=== PATIENT | male | born 1970 | race Caucasian/White ===

== ENCOUNTER 2022-10-03 07:42 | Inpatient (IN) ==
--- NOTE | 2022-09-27 12:10 | Anesthesiology Consultation ---
Date of Service September 27, 2022 Assessment & Plan (1) Encounter for pre-operative examination: Chart Review Chart Review: Acceptable Risk for Surgery and Patient NOT seen in Pre Admission Testing -Pt initially scheduled 09/20/22- tested for Covid preop- tested Covid positive- rescheduled for 10/03/22. Pt was asymptomatic at time of positive test. Rescheduled surgery date is 13 days for Covid positive test. Per protocol- pt will not need additional preop Covid testing - Check BSG AM DOS -COVID screening: Per PAT nursing assessment on 09/27/22. Pt tested Covid positive 09/20/22 as preop test- asymptomatic. No known COVID-19 positive contacts or current COVID-19 related symptoms. Travel screen negative. Patient is NOT vaccinated for Covid. . History Surgery Operation Date: 10/03/22 07:45 Proposed Procedures p L4-S1 Decompression and Fusion, Spinal Cord Monitoring - Jacky Kinney DO Height/Weight Height: 5 ft 11 in Weight: 90.718 kg Allergies Allergy/AdvReac Type Severity Reaction Status Date / Time No Known Allergies Allergy Verified 09/27/22 11:33 Medications Home Medications Medication Instructions Recorded Confirmed Last Taken oxycodone-acetaminophen 5 mg-325 1 - 2 tab PO Q4H PRN pain #30 tabs 07/21/22 09/27/22 Unknown mg tablet (Percocet) aspirin 81 mg tablet 81 mg PO QAM 08/26/22 09/27/22 09/17/22 atorvastatin 40 mg tablet 40 mg PO QAM 08/26/22 09/27/22 09/18/22 empagliflozin 25 mg tablet 25 mg PO QAM 08/26/22 09/27/22 09/15/22 (Jardiance) lisinopril 10 mg tablet 10 mg PO QAM 08/26/22 09/27/22 09/17/22 metformin 500 mg tablet,extended 500 mg PO QAM 08/26/22 09/27/22 09/19/22 08:00 release 24 hr Past Medical History Medical History (Updated 09/27/22 @ 12:10 by Ltety Noel PA-C) Dyslipidemia History of COVID-19 Sep 20, 2022 > asymptomatic- does as preop > tested [place] Hypertension Obesity Type 2 diabetes mellitus NIDDM Past Family History Family History Other No family history of adverse response to anesthesia Past Surgical History Surgical History History of hernia repair Hx of colonoscopy Social History Smoking Status: Never smoker tobacco type: smokeless tobacco Do You Dip or Chew Tobacco: Yes (advised npo status) Hx Alcohol Use: Yes Alcohol type: beer alcohol intake frequency: a few times a month Hx Substance Use: No substance use type: does not use Lab Results Anesthesia Preop Results Results Anesthesia Widget: WBC 4.74 K/ul (4.8-10.8) L 08/29/22 Hgb 14.5 g/dl (14.0-18.0) 08/29/22 Hct 40.6 % (40.1-51.0) 08/29/22 Plt 211 K/uL (130-400) 08/29/22 Na 132 mmol/L (136-145) L 08/29/22 K 4.1 mmol/L (3.5-5.1) 08/29/22 Cl 93 mmol/L (98-107) L 08/29/22 CO2 30 mmol/L (21-32) 08/29/22 BUN 15 mg/dl (6-23) 08/29/22 Creat 0.78 mg/dl (0.6-1.4) 08/29/22 Glucose Level 228 mg/dl (70-99(Fasting)) H 08/29/22 POC Glucose 183 mg/dl (70-99) H 09/20/22 PT 10.1 Seconds (9.0-12.0) 08/29/22 PTT 25.3 Seconds (21.0-31.0) 08/29/22 INR 0.9 (0.9-1.1) 08/29/22 HA1c 8.3 % (4.5-5.6) H 08/29/22 Urine Color Yellow 08/29/22 Urine Appearance Clear (Clear) 08/29/22 Urine pH 6.0 (4.5-7.5) 08/29/22 Urine Specific [place] 1.033 (1.000-1.030) H 08/29/22 Urine Protein Negative (Negative) 08/29/22 Urine Glucose (UA) 3+ (Negative) H 08/29/22 Urine Ketones Negative (Negative) 08/29/22 Urine Blood Negative (Negative) 08/29/22 Urine Nitrite Negative (Negative) 08/29/22 Urine Bilirubin Negative (Negative) 08/29/22 Urine Urobilinogen Negative (Negative) 08/29/22 Urine Leukocyte Esterase Negative (Negative) 08/29/22 SARS-CoV-2, RNA, NAAT POSITIVE (NEGATIVE) A* 09/20/22 Blood Type A Positive 09/20/22 Antibody Screen NEGATIVE 09/20/22 Testing Laboratory Results Surgeon's office made aware of elevated glucose/A1C* Electrocardiogram Date: 08/29/22 SR with PACs at 82bpm. Chest X-Ray Date: 08/29/22 Findings: + NAD Echocardiogram Date: 09/06/22 EF: 60-65% LV Function: normal RWMA: + none Other Findings: + LVH (mild/concentric) Valvular Disease: + no significant valvular disease Moderate right atrial dilation
[~2022-10-03 07:42] MED LIST: ACETAMINOPHEN 500 MG TAB PO SCH; CeleBREX 200 MG CAP PO SCH; GABAPENTIN 900 MG DOSE PO SCH; LR 15ML/HR IV SCH; ceFAZolin 2000MG 2,000 MG/15 ML SYR IV SCH
[2022-10-03] MEDS ORDERED: ROCURONIUM BROMIDE 10 MG/ML 5 ML VIAL IV ONE (08:51)
[2022-10-03] MEDS ORDERED: MIDAZOLAM HCL 1 MG/ML 2ML VIAL ONE ×2 (08:51→10:31)
[2022-10-03] MEDS ORDERED: LIDOCAINE 2% MPF LOCAL 5 ML VIAL INFIL ONE (08:51)
[2022-10-03] MEDS ORDERED: ONDANSETRON INJ 2 MG/ML 2 ML VIAL ONE (08:51)
[2022-10-03] MEDS ORDERED: fentaNYL citrate 100 MCG/2 ML VIAL ONE ×2 (08:51→11:18)
[2022-10-03] MEDS ORDERED: DEXAMETHASONE SOD INJ 4 MG/ML VIAL ONE (08:51)
[2022-10-03] MEDS ORDERED: PROPOFOL IV EMULSION 10 MG/ML 20 ML VIAL IV ONE (08:51)
[2022-10-03] MEDS ORDERED: ONDANSETRON INJ 2 MG/ML 2 ML VIAL IV PRN ×2 (09:14→13:52)
[2022-10-03] MEDS ORDERED: fentaNYL citrate 100 MCG/2 ML VIAL IV PRN (09:14)
[2022-10-03] MEDS ORDERED: ATROPINE SULFATE 0.1 MG/ML 10ML SYR IV PRN (09:14)
[2022-10-03] MEDS ORDERED: ePHEDrine sulfate 50 MG/ML AMP IV PRN (09:14)
[2022-10-03] MEDS ORDERED: HYDROmorphone INJ 2 MG/ML SYR/VIAL IV PRN (09:14)
--- NOTE | 2022-10-03 10:02 | History & Physical Bridge Note ---
Date of Service October 03, 2022 History & Physical Bridge Note I have examined the patient, reviewed the History & Physical and in the interval since the performance of the History & Physical I have noted the following changes of clinical significance: no changes noted
--- NOTE | 2022-10-03 10:03 | History & Physical Report ---
Date of Service October 03, 2022 Assessment & Plan (1) Herniation of cervical intervertebral disc with radiculopathy: Plan: L4-S1 decompression and fusion History of Present Illness Chief Complaint: Back and leg pain Primary Care Provider: Melinda Lang MD This is a 52-year-old male presents with chronic persistent back and leg pain. After failing such course of nonoperative care is here for surgical invention. Allergies Allergy/AdvReac Type Severity Reaction Status Date / Time No Known Allergies Allergy Verified 10/03/22 08:19 Home Medications Medication Instructions Recorded Confirmed Type oxycodone-acetaminophen 5 mg-325 1 - 2 tab PO Q4H PRN pain #30 tabs 07/21/22 10/03/22 Rx mg tablet (Percocet) aspirin 81 mg tablet 81 mg PO QAM 08/26/22 10/03/22 History atorvastatin 40 mg tablet 40 mg PO QAM 08/26/22 10/03/22 History empagliflozin 25 mg tablet 25 mg PO QAM 08/26/22 10/03/22 History (Jardiance) lisinopril 10 mg tablet 10 mg PO QAM 08/26/22 10/03/22 History metformin 500 mg tablet,extended 500 mg PO QAM 08/26/22 10/03/22 History release 24 hr Past Med/Surg History Medical History (Updated 10/03/22 @ 10:03 by Jacky Kinney DO) Dyslipidemia History of COVID-19 Sep 20, 2022 > asymptomatic- does as preop > tested at [place] Hypertension Obesity Type 2 diabetes mellitus NIDDM Surgical History History of hernia repair Hx of colonoscopy Family History Other No family history of adverse response to anesthesia Social History Smoking Status: Never smoker Second Hand Exposure: No; Do You Dip or Chew Tobacco: Yes (advised npo status); Tobacco Cessation Education Requested by Patient: No Hx Alcohol Use: Yes Alcohol type: beer Hx Substance Use: No Preferred Language: [place]orese Communication Ability: Effective Tar Roofer Required: No Beliefs That Will Affect Care: None Current Living Situation: Spouse Other Information That Helps Us Care for You: No Feels Safe at Home: Yes Safety Concerns: Feels Safe At This Time Assistive Devices: None Physical Exam Physical Exam: Patient is alert and oriented Heart regular rhythm Lungs clear Results & Data Results & Data ([facility]) Vital Signs (Past 12 Hours) Vital Signs Temp Pulse Resp BP Pulse Ox O2 Del Method 10/03/22 08:27 36.8 C 75 20 121/93 98 Room Air
[2022-10-03] MEDS ORDERED: BUPIVACAINE/EPINEPHRINE 0.25% 1:200,000 30 ML VIAL ONE (10:07)
[2022-10-03] MEDS ORDERED: ceFAZolin 330 MG/ML 1 GM VIAL ONE (10:07)
[2022-10-03] MEDS ORDERED: FLOSEAL HEMOSTATIC MATRIX 10ML TOP ONE (11:14)
[2022-10-03] MEDS ORDERED: GLYCOPYRROLATE 0.2 MG/ML VIAL ONE (11:44)
--- NOTE | 2022-10-03 12:25 | Fluoroscopy Report ---
INTRAOPERATIVE RADIOGRAPHS CLINICAL HISTORY: L4-S1 spinal fusion. Fluoroscopy time: 24 seconds. FINDINGS: 2 spot fluoroscopic views of the lumbar spine are presented. There has been discectomy at L 5-S1 with laminectomy and posterior fusion at this level. Interpedicular screws are in place. The ort hopedic hardware appears intact. IMPRESSION: Intraoperative images from lumbar spinal fusion surgery as above. Electronically signed by: Bret Blevins M.D. 10/03/2022 12:23 PM
--- NOTE | 2022-10-03 12:27 | Operative Report ---
Post Operative Report Pre & Post Diagnosis Operation Date: 10/03/22 09:35 Pre-Op Diagnosis: Lumbar spinal stenosis with herniated nucleus pulposus L5-S1. Post-Op Diagnosis: Same I identified the patient and participated in the time-out.: Yes Procedure Operation Date: 10/03/22 09:35 Actual Procedures #1 lumbar compression bilateral medial facetectomies and foraminotomies L4-L5 L5-S1. #2 posterior spinal fusion L5-S1. #3 placement posterior instrumentation L5-S1. #4 interbody fusion L5-S1. #5 placement of 14 x 26 mm at L5-S1. #6 placement locally harvested morselized autograft in the posterior gutters. #7 placement of I factor model V toss interbody space and posterior gutters. Surgeon Jacky Kinney, Health Club Attendant None Estimated Blood Loss 100 Findings Consistent with Post-Op Diagnosis Specimens None Indications This is a 52-year-old male who presents with a diagnosis of failed extensive course of nonoperative care is here for surgical invention. Description of Procedure Patient was met with identified informed consent obtained. Patient was then taken to the operative suite underwent a patient placed in a prone position the Sukumar table on top of the Preston frame. All bony prominences well-padded eyes inspected to ensure no external pressure placed upon them. This point lumbar spine was prepped and draped in a sterile fashion. Sharp dissection with the assistance of Bovie cautery was performed down to and exposing the lamina and transverse processes of L5 and sacral ala bilaterally. From caudal to cephalad fashion complete laminectomy of L5 partial anatomy L4 was performed including bilateral medial facetectomies foraminotomies as well as addressing a massive free fragment of disc material on the left. After complete decompression pedicle screws were then placed at L5 and S1 levels bilaterally with assistance of fluoroscopy and properly sized latricia placed. By way of a transforaminal approach on the left complete discectomy was performed endplates curetted to subcortical bleeding bone and a 14 x 26 mm spiral cage with I factor tapped in position. The rods were then locked into final position bilaterally. The transverse processes of L5 and sacral ala burred to subcortical bleeding bone. I factor combined with V toss and locally harvested morselized autograft was placed in the posterior gutters. 15 round RAVI inserted. The incision was then closed with 1 Vicryl the fascia 2-0 Vicryl subcutaneously and 4 Monocryl for final skin closure. Steri-Strips dressings placed. Patient waken taken to PACU in stable condition. I attest to the content of the Intraoperative Record and any orders documented therein. Any exceptions are noted below.
--- NOTE | 2022-10-03 13:42 | Anesthesiology Progress Note ---
Date of Service October 03, 2022 Anesthesia Post Procedure Vital Signs Vital Signs: Temp Pulse Pulse Resp BP Pulse Ox O2 Del Method 10/03/22 13:20 56 L 12 113/74 98 Room Air 10/03/22 13:10 76 17 105/70 100 Oxymask 10/03/22 13:00 48 L 13 99/68 L 100 Oxymask 10/03/22 12:50 60 13 106/66 98 Oxymask 10/03/22 12:43 36.2 C L 63 12 94/68 L 100 Oxymask 10/03/22 08:27 36.8 C 75 20 121/93 98 Room Air O2 Flow Rate 10/03/22 13:20 10/03/22 13:10 4 10/03/22 13:00 4 10/03/22 12:50 6 10/03/22 12:43 6 10/03/22 08:27 Pain Intensity Left Leg: Pain Intensity: 5 Lower Back: Pain Intensity: 5 Transfer of Care Handoff Completed per policy Notes Mental Status: alert / awake / arousable and participated in evaluation Patient Amnestic to Procedure: Yes Nausea / Vomiting: adequately controlled Pain: adequately controlled Airway Patency, RR, SpO2: stable & adequate BP & HR: stable & adequate Hydration State: stable & adequate Anesthetic Complications: no major complications apparent and Pt Satisfied with anesthetic care
[2022-10-03] MEDS ORDERED: hydrOXYzine HCl 25 MG TAB PO PRN (13:52)
[2022-10-03] MEDS ORDERED: bisacodyL 10 MG SUPP PR PRN (13:52)
[2022-10-03] MEDS ORDERED: PHARMACY GLYCEMIC MGMT CONSULT PRN (13:52)
[2022-10-03] MEDS ORDERED: DO NOT ADMINISTER PNEUMOCOCCAL VACCINE PRN (13:52)
[2022-10-03] MEDS ORDERED: HYDROmorphone INJ 0.5 MG/0.5 ML SYR IV PRN (13:52)
[2022-10-03] MEDS ORDERED: HYDROmorphone INJ 1 MG/ML SYRINGE IV PRN (13:52)
[2022-10-03] MEDS ORDERED: diphenhydrAMINE Capsule 25 MG CAP PO PRN (13:52)
[2022-10-03] MEDS ORDERED: ONDANSETRON 4 MG OD TAB PO PRN (13:52)
[2022-10-03] MEDS ORDERED: PROMETHAZINE HCL 12.5 MG in SODIUM CHLORIDE 0.9% 50 ML IV PRN (13:52)
[2022-10-03] MEDS ORDERED: METOCLOPRAMIDE HCL INJ 5 MG/ML 2 ML VIAL IV PRN (13:52)
[2022-10-03] MEDS ORDERED: LORazepam 0.5 MG TAB PO PRN (13:52)
[2022-10-03] MEDS ORDERED: FAMOTIDINE 20 MG TAB PO PRN (13:52)
[2022-10-03] MEDS ORDERED: DO NOT ADMINISTER FLU VACCINE PRN (13:52)
[2022-10-03] MEDS ORDERED: SOD PHOSPHATE/SOD BIPHOSPHATE ENEMA 132 ML BTL PR PRN (13:52)
[2022-10-03] MEDS ORDERED: MAGNESIUM HYDROXIDE SUSP 30 ML UDC PO PRN (13:52)
[2022-10-03] MEDS ORDERED: ACETAMINOPHEN 500 MG TAB PO PRN (13:52)
[2022-10-03] MEDS ORDERED: ALUMINUM/MAGNESIUM SUSP 30 ML UDC PO PRN (13:52)
[2022-10-03] MEDS ORDERED: NALOXONE HCL 0.4 MG/1 ML VIAL/CARP IV PRN (13:52)
[2022-10-03] MEDS ORDERED: LORazepam 0.5 MG in SYRINGE 0 ML IV PRN (13:52)
[2022-10-03] MEDS: SODIUM CHLORIDE 0.9% 1000ML 1,000 ML IV SCH ×2 (14:23→20:29)
--- NOTE | 2022-10-03 14:27 | Pharmacy Report ---
Pharmacy Glycemic Short Note 2 - Date of Service October 03, 2022 - Glycemic Short BSG Results (Last 24 hours): 10/03/22 10/03/22 08:10 12:45 POC Glucose 168 H 164 H OUTPATIENT ANTIDIABETIC REGIMEN: * metformin, Jardiance ASSESSMENT: * 52 y/o M POD#0 spinal decompression/fusion with history of T2DM * Steriods preop and continuing post op x3 doses * Lantus 30 units x1 now, reassess basal insulin in AM * Novolog ordered with a weight based stress of 3 PLAN FOR INPATIENT GLYCEMIC CONTROL: * Hold outpatient oral diabetes medications * Basal insulin * Lantus 30 units SQ x1, reassess in Am * Bolus insulin * NovoLog per scale ACHS or Q6hrs while NPO * Goal Range: Low 110 mg/dL - High 140 mg/dL * Correction Factor: 20 mg/dL/unit * Nutritional / Prandial insulin per carb ratio of 1 unit per 6 grams CHO consumed
[2022-10-03] MEDS ORDERED: LANTUS PER UNIT CHARGE SQ ONE ×2 (14:30→17:30)
[2022-10-03] MEDS ORDERED: GLUCOSE 40% GEL 15 GM TUBE PO PRN (14:45)
[2022-10-03] MEDS ORDERED: CARBOHYDRATES FOR HYPOGLYCEMIA PO PRN (14:45)
[2022-10-03] MEDS ORDERED: GLUCOSE 10 TAB/TUBE PO PRN (14:45)
[2022-10-03] MEDS ORDERED: GLUCAGON FOR INJ 1 MG VIAL IM PRN (14:45)
[2022-10-03] MEDS ORDERED: DEXTROSE 50% 50 ML SYRINGE IV PRN (14:45)
--- NOTE | 2022-10-03 15:39 | Hospitalist Consultation ---
Date of Consultation October 03, 2022 Assessment & Plan (1) S/P spinal surgery: (2) Type 2 diabetes mellitus: (3) Hypertension: (4) Dyslipidemia: Plan This is a 52yo M with a PMH of type 2 diabetes, hypertension, hyperlipidemia, chewing tobacco and other medical problems listed below who is POD#0 s/p umbar compression bilateral medial facetectomies and foraminotomies L4-L5 L5-S1 and posterior spinal fusion L5-S1. S/p spinal surgery Per ortho for pain control, wound care, anticoagulation and activities Monitor H&H (EBL 100ml, pre-op hgb 14.5) Continue incentive spirometry, PT/OT when appropriate DM II A1c 8.3 Hold home agents Decadron ordered by primary service; expect elevated BSG. Glycemic pharmacy consulted BSG AC HS HTN Normotensive. Continue lisinopril HLD Continue statin Tobacco use Chews tobacco daily; cessation education. Nicotine patch ordered PCP: Melinda Lang Dispo: Per ortho Patient seen in collaboration with Dr. Jules. Please see addendum. Thank you for this consultation. We will follow the patient with you during their hospital stay. You can reach a member of the [facility] Hospitalist Team 12/05 via [employer]. Supervising Physician Co-Signing Physician Notes I have seen and examined the patient and have discussed the case with the provider above. I agree with the assessment and plan as stated. The patient is experiencing expected incisional pain which is controlled. He is a tobacco user and is requesting a nicoderm patch. is at bedside. No other issues are reported. My physical exam reflects that above. Continue with plan for medication management as outlined above. DO Jorge A History of Present Illness Reason for Consultation: post op med mgmt Attending Physician: Jacky Kinney DO History of Present Illness This is a 52yo M with a PMH of type 2 diabetes, hypertension, hyperlipidemia, chewing tobacco and other medical problems listed below who is POD#0 s/p lumbar compression bilateral medial facetectomies and foraminotomies L4-L5 L5-S1 and posterior spinal fusion L5-S1. Patient is feeling fine postoperatively. Has some surgical site discomfort but lower extremity pain and paresthesias he had preoperatively are no longer present. Denies any lightheadedness, headache, chest pain, palpitations, shortness of breath, nausea or vomiting. No fever, chills or cough. Denies any dysuria, diarrhea or constipation. Follows with Dr. Lang of [facility] in [place], [place]. Allergies Allergy/AdvReac Type Severity Reaction Status Date / Time No Known Allergies Allergy Verified 10/03/22 08:19 Home Medications Medication Instructions Recorded Confirmed Type oxycodone-acetaminophen 5 mg-325 1 - 2 tab PO Q4H PRN pain #30 tabs 07/21/22 10/03/22 Rx mg tablet (Percocet) aspirin 81 mg tablet 81 mg PO QAM 08/26/22 10/03/22 History atorvastatin 40 mg tablet 40 mg PO QAM 08/26/22 10/03/22 History empagliflozin 25 mg tablet 25 mg PO QAM 08/26/22 10/03/22 History (Jardiance) lisinopril 10 mg tablet 10 mg PO QAM 08/26/22 10/03/22 History metformin 500 mg tablet,extended 500 mg PO QAM 08/26/22 10/03/22 History release 24 hr Patient History Medical History (Updated 10/03/22 @ 15:35 by Maureen Upton PA-C) Dyslipidemia History of COVID-19 Sep 20, 2022 > asymptomatic- does as preop > tested at [place] Hypertension Obesity Type 2 diabetes mellitus NIDDM Surgical History (Updated 10/03/22 @ 15:35 by Maureen Upton PA-C) History of hernia repair Hx of colonoscopy Family History Other Diabetes Hypertension No family history of adverse response to anesthesia Social History (Updated 10/03/22 @ 15:34 by Maureen Upton PA-C) Smoking Status: Current every day smoker Tobacco Type: Smokeless Tobacco (Dip or Chew) Second Hand Exposure: No; Do You Dip or Chew Tobacco: Yes (advised npo status); Tobacco Cessation Education Requested by Patient: No Hx Alcohol Use: Yes Alcohol type: beer Hx Substance Use: No Preferred Language: Kuwaiti Communication Ability: Effective Financial Intern Required: No Beliefs That Will Affect Care: None Current Living Situation: Spouse Other Information That Helps Us Care for You: No Feels Safe at Home: Yes Safety Concerns: Feels Safe At This Time Assistive Devices: None Review of Systems Review of Systems: At least ten systems reviewed and negative except as noted in the HPI. Physical Exam Physical Exam: General Appearance: WD/WN, vitals as above, NAD, lying in bed, pleasant, conversing easily Head: normocephalic, atraumatic Eyes: normal inspection, conjunctivae normal, anicteric sclerae ENT: external ear and nose normal, oropharynx normal Respiratory: normal respiratory effort, lungs clear to auscultation Cardiovascular: regular rate, rhythm, no murmur, normal peripheral pulses Abdomen/GI: normal bowel sounds, soft, nontender, no hepatosplenomegaly Extremities/Musculoskeletal: Spinal dressing c/d/i. +RAVI drain visualized. Extremities motor strength 5/5 Neurologic: PERRL, no dysarthria, CN's II-XI intact bilaterally and moves all extremities Psychiatric: A+Ox3, euthymic affect Skin: no rashes, normal color, warm/dry Results & Data Results & Data ([facility]) Vital Signs (Past 12 Hours) Vital Signs Temp Pulse Pulse Resp BP Pulse Ox O2 Del Method 10/03/22 14:20 36.6 C 55 L 16 107/73 98 Room Air 10/03/22 13:40 69 13 123/80 95 Room Air 10/03/22 13:30 36.2 C L 65 15 104/71 99 Room Air 10/03/22 13:20 56 L 12 113/74 98 Room Air 10/03/22 13:10 76 17 105/70 100 Oxymask 10/03/22 13:00 48 L 13 99/68 L 100 Oxymask 10/03/22 12:50 60 13 106/66 98 Oxymask 10/03/22 13:50 53 L 20 107/78 98 Room Air 10/03/22 12:43 36.2 C L 63 12 94/68 L 100 Oxymask 10/03/22 08:27 36.8 C 75 20 121/93 98 Room Air O2 Flow Rate 10/03/22 14:20 10/03/22 13:40 10/03/22 13:30 10/03/22 13:20 10/03/22 13:10 4 10/03/22 13:00 4 10/03/22 12:50 6 10/03/22 13:50 10/03/22 12:43 6 10/03/22 08:27 Medications Administered Current Inpatient Medications Acetaminophen (Acetaminophen 500 Mg Tab) 1,000 mg PO Q8H PRN PRN Reason: MILD Pain Scale 1,2,3 & Pre PT Stop: 11/02/22 13:51 Al Hydrox/Mg Hydrox/Simethicone (Aluminum/Magnesium Susp 30 Ml Udc) 30 ml PO Q6H PRN PRN Reason: Dyspepsia Stop: 11/02/22 13:51 Aspirin (Aspirin 81 Mg Ectab) 81 mg PO QAM [facility] Stop: 11/03/22 08:59 Atorvastatin Calcium (Atorvastatin 40 Mg Tab) 40 mg PO QAM [facility] Stop: 11/03/22 08:59 Bisacodyl (Bisacodyl 10 Mg Supp) 10 mg DE DAILY PRN PRN Reason: Constipation Stop: 11/02/22 13:51 Dextrose (Dextrose 50% 50 Ml Syringe) 25 - 50 ml IV UD PRN; Protocol PRN Reason: Hypoglycemia Protocol Stop: 11/02/22 14:44 Diphenhydramine HCl (Diphenhydramine Capsule 25 Mg Cap) 25 mg PO Q6H PRN PRN Reason: Allergic Rhinitis/Insomnia Stop: 11/02/22 13:51 Famotidine (Famotidine 20 Mg Tab) 20 mg PO Q12H PRN PRN Reason: Dyspepsia Stop: 11/02/22 13:51 Glucagon (Glucagon For Inj 1 Mg Vial) 1 mg IM UD PRN; Protocol PRN Reason: Hypoglycemia Protocol Stop: 11/02/22 14:44 Glucose (Glucose 40% Gel 15 Gm Tube) 15 - 30 gm PO UD PRN; Protocol PRN Reason: Hypoglycemia Protocol Stop: 11/02/22 14:44 Glucose (Glucose 10 Tab/Tube) 4 - 8 tab PO UD PRN; Protocol PRN Reason: Hypoglycemia Protocol Stop: 11/02/22 14:44 Hydromorphone HCl (Hydromorphone Inj 0.5 Mg/0.5 Ml Syr) 0.5 mg IV Q3H PRN PRN Reason: MODERATE Pain (Scale 4,5,6) & Pre PT Stop: 10/17/22 13:51 Hydromorphone HCl (Hydromorphone Inj 1 Mg/Ml Syringe) 1 mg IV Q3H PRN PRN Reason: SEVERE Pain (Scale 7,8,9,10) Stop: 10/17/22 13:51 Hydroxyzine HCl (Hydroxyzine Hcl 25 Mg Tab) 25 mg PO Q8H PRN PRN Reason: Anxiety Stop: 11/02/22 13:51 Sodium Chloride (Nss 1000ml) 1,000 mls @ 150 mls/hr IV .Q6H40M [facility] Stop: 11/02/22 13:51 Last Admin: 10/03/22 14:23 Dose: 150 mls/hr Promethazine HCl 12.5 mg/ (Sodium Chloride) 50.5 mls @ 202 mls/hr IV Q6H PRN PRN Reason: Nausea &/or Vomiting Stop: 11/02/22 13:51 Acetaminophen (Ofirmev) 1,000 mg in 100 mls @ 400 mls/hr IV Q8H PRN PRN Reason: Pain Rating 1-3 & Pre PT Stop: 10/06/22 15:59 Cefazolin Sodium (Ancef 2000mg) 2,000 mg in 15 mls @ 3.75 mls/min IV Q8H [facility]; Protocol Stop: 10/04/22 02:33 Last Admin: 10/03/22 19:49 Dose: 3.75 mls/min Lorazepam 0.5 mg/ Syringe 0.5 mls @ 2 mls/min IV Q8H PRN PRN Reason: Sedation/Anxiety Stop: 11/02/22 13:51 Dexamethasone 6 mg/ Syringe 1.5 mls @ 1 mls/min IV Q8H [facility] Stop: 10/04/22 07:02 Last Admin: 10/03/22 17:11 Dose: 1 mls/min Influenza Virus Vaccine Quadrival (Do Not Administer Flu Vaccine) 1 each N/A PRN PRN PRN Reason: Notification Stop: 11/02/22 13:51 Insulin Aspart (Insulin Aspart Per Unit) 0 units SC ACHS [facility] Stop: 11/02/22 16:29 Last Admin: 10/03/22 19:12 Dose: Not Given Lisinopril (Lisinopril 10 Mg Tab) 10 mg PO QAM [facility] Stop: 11/03/22 08:59 Lorazepam (Lorazepam 0.5 Mg Tab) 0.5 mg PO Q8H PRN PRN Reason: Sedation/Anxiety Stop: 11/02/22 13:51 Magnesium Hydroxide (Magnesium Hydroxide Susp 30 Ml Udc) 30 ml PO Q24H PRN PRN Reason: Constipation Stop: 11/02/22 13:51 Metoclopramide HCl (Metoclopramide Hcl Inj 5 Mg/Ml 2 Ml Vial) 10 mg IV Q6H PRN PRN Reason: Nausea &/or Vomiting Stop: 11/02/22 13:51 Miscellaneous (Carbohydrates For Hypoglycemia ) 15 - 30 gm PO UD PRN PRN Reason: Hypoglycemia Treatment Stop: 11/02/22 14:44 Miscellaneous (Remove Nicoderm Patch) 1 each N/A Q24H [facility] Stop: 11/03/22 08:58 Miscellaneous Information (Pharmacy Glycemic Mgmt Consult) 1 each N/A UD PRN PRN Reason: Consult Stop: 11/02/22 13:51 Naloxone HCl (Naloxone Hcl 0.4 Mg/1 Ml Vial/Carp) 0.1 mg IV Q5M PRN PRN Reason: Oversedation/Resp depression Stop: 11/02/22 13:51 Nicotine (Nicotine 21 Mg/24 Hr Tdsy) 21 mg TD Q24H [facility] Stop: 11/02/22 17:29 Last Admin: 10/03/22 19:48 Dose: Not Given Ondansetron HCl (Ondansetron Inj 2 Mg/Ml 2 Ml Vial) 4 mg IV Q6H PRN PRN Reason: Nausea &/or Vomiting Stop: 11/02/22 13:51 Ondansetron HCl (Ondansetron 4 Mg Od Tab) 4 mg PO Q6H PRN PRN Reason: Nausea Stop: 11/02/22 13:51 Oxycodone HCl (Oxycodone Hcl Ir 5 Mg Tab (Immediate Release)) 5 - 10 mg PO Q4H PRN PRN Reason: Pain & Pre PT Stop: 10/17/22 13:51 Last Admin: 10/03/22 16:18 Dose: 10 mg Pneumococcal Polyvalent Vaccine (Do Not Administer Pneumococcal Vaccine) 1 each N/A PRN PRN PRN Reason: Notification Stop: 11/02/22 13:51 Polyethylene Glycol (Polyethylene (Miralax) 17 Gm Pack) 17 gm PO Q6 [facility] Stop: 11/03/22 05:59 Senna/Docusate Sodium (Docusate Sodium/Senna 50/8.6mg Tab) 2 tab PO HS [facility] Stop: 11/02/22 20:59 Sodium Biphosphate/Sodium Phosphate (Sod Phosphate/Sod Biphosphate Enema 132 Ml Btl) 132 ml DE ONE PRN PRN Reason: Constipation Stop: 11/02/22 13:51 Tramadol HCl (Tramadol Hcl 50 Mg Tablet) 50 - 100 mg PO Q4H PRN PRN Reason: Moderate-Severe pain & Pre PT Stop: 11/02/22 13:51
[2022-10-03] MEDS ORDERED: ACETAMINOPHEN 1,000 MG/100 ML VIAL IV PRN (16:00)
[2022-10-03] MEDS: oxyCODONE HCL IR 5 MG TAB (IMMEDIATE RELEASE) PO PRN ×2 (16:18→21:29)
[2022-10-03] MEDS ORDERED: NICOTINE 21 MG/24 HR TDSY TD SCH (16:45)
[2022-10-03] MEDS: dexAMETHasone 6 MG in SYRINGE 0 ML IV SCH ×2 (17:11→22:59)
[2022-10-03] MEDS: INSULIN ASPART PER UNIT SC SCH ×2 (19:12→21:42)
[2022-10-03] MEDS: NICOTINE 21 MG/24 HR TDSY TD SCH (19:48)
[2022-10-03] MEDS: ceFAZolin 2000MG 2,000 MG/15 ML SYR IV SCH (19:49)
[2022-10-03] MEDS: DOCUSATE SODIUM/SENNA 50/8.6MG TAB PO SCH (21:27)
[2022-10-03] MEDS ORDERED: INSULIN HUMAN REGULAR PER UNIT 10 UNITS in SYRINGE 9.9 ML IV ONE (21:30)
[2022-10-04] MEDS ORDERED: INSULIN ASPART PER UNIT SC SCH
[2022-10-04] MEDS: INSULIN ASPART PER UNIT SC SCH ×6 (00:49→20:42)
[2022-10-04] MEDS: traMADol HCL 50 MG TABLET PO PRN (00:53)
[2022-10-04] MEDS: ceFAZolin 2000MG 2,000 MG/15 ML SYR IV SCH (02:20)
[2022-10-04] MEDS: SODIUM CHLORIDE 0.9% 1000ML 1,000 ML IV SCH (03:40)
[2022-10-04] MEDS: oxyCODONE HCL IR 5 MG TAB (IMMEDIATE RELEASE) PO PRN ×4 (03:50→19:47)
[2022-10-04] MEDS: POLYETHYLENE (MIRALAX) 17 GM PACK PO SCH ×4 (06:23→23:48)
[2022-10-04] MEDS: dexAMETHasone 6 MG in SYRINGE 0 ML IV SCH (06:23)
[2022-10-04 07:35] LABS: Hematocrit (blood only) 36.7 % (40.1-51.0); Hemoglobin 12.9 g/dl (14.0-18.0); Mean Corpuscular Hemoglobin 31.4 pg (25.0-34.0); Mean Corpuscular Hgb Conc 35.1 g/dL (32.0-36.0); Mean Corpuscular Volume 89.3 fL (80.0-100.0); Platelet Count 195 K/uL (130-400); RDW Coefficient of Variation 12.1 % (11.5-14.5); RDW Standard Deviation 39.5 fL (36.4-46.3); Red Blood Count 4.11 M/uL (4.63-6.08); White Blood Count 13.26 K/ul (4.8-10.8)
[2022-10-04 07:52] LABS: Basophils # (auto) 0.01 K/uL (0-0.2); Basophils % (auto) 0.1 %; Echinocytes 1+; Immature Granulocytes # (auto) 0.05 K/uL (0.00-0.02); Immature Granulocytes % (auto) 0.4 %; Lymphocytes # (auto) 0.75 K/uL (1.2-3.4); Lymphocytes % (auto) 5.7 %; Monocytes # (auto) 0.44 K/uL (0.24-0.82); Monocytes % (auto) 3.3 %; Neutrophils # (auto) 12.01 K/uL (1.4-6.5); Neutrophils % (auto) 90.5 %
[2022-10-04 08:00] LABS: BUN Creatinine Ratio 17.6 (10-20); Calcium 8.2 mg/dl (8.5-10.1); Creatinine Clr Calc Pharmacy 135.3 ml/min; Est GFR (African American) 127.3 ml/min; Est GFR (Non-African American) 109.8 ml/min; Potassium 3.9 mmol/L (3.5-5.1)
[2022-10-04] MEDS: ATORVASTATIN 40 MG TAB PO SCH (08:22)
[2022-10-04] MEDS: lisinopril 10 MG TAB PO SCH (08:22)
[2022-10-04] MEDS: ASPIRIN 81 MG ECTAB PO SCH (08:23)
[2022-10-04] MEDS ORDERED: LANTUS PER UNIT CHARGE SQ ONE ×2 (09:00→14:00)
[2022-10-04] MEDS ORDERED: EMPAGLIFLOZIN 25 MG TAB PO SCH (09:00)
--- NOTE | 2022-10-04 12:25 | Orthopedic Progress Note ---
Date of Service October 04, 2022 Assessment & Plan (1) Herniation of cervical intervertebral disc with radiculopathy: Plan: Today we will initiate physical therapy monitor his RAVI output hopefully discharge home in the next few days. Admission and Anticipated Discharge Date Admission Date: October 03, 2022 Subjective Patient's back pain is controlled leg symptoms markedly improved Physical Exam Physical Exam: Patient seen at the bedside. Skin strength testing. Peers comfortable. Results & Data ([facility]) Vital Signs (Past 12 Hours) Vital Signs Temp Pulse Pulse Resp BP BP Pulse Ox 10/04/22 07:30 10/04/22 07:55 36.5 C 71 18 113/73 96 10/04/22 02:22 36.7 C 75 18 102/68 95 O2 Del Method 10/04/22 07:30 Room Air 10/04/22 07:55 Room Air 10/04/22 02:22 Room Air
--- NOTE | 2022-10-04 14:03 | Pharmacy Report ---
Pharmacy Glycemic Short Note 2 - Date of Service October 04, 2022 - Glycemic Short BSG Results (Last 24 hours): 10/03/22 10/03/22 10/04/22 20:52 20:54 00:30 Glucose POC Glucose 393 H* 417 H* 196 H 10/04/22 10/04/22 10/04/22 03:38 06:49 08:06 Glucose 197 H POC Glucose 150 H 209 H 10/04/22 12:08 Glucose POC Glucose 192 H OUTPATIENT ANTIDIABETIC REGIMEN: * metformin, Jardiance * A1c 8.3% 09/10 ASSESSMENT: 10/04 * BSG significantly elevated last PM, came down with IV bolus * Will continue with weight stress of 2 lantus, dexamethasone discontinued after AM dose today * Slightly tightened novolog parameters this morning, anticipating loosening tomorrow after steroids have begun to wear off 10/03 * 52 y/o M POD#0 spinal decompression/fusion with history of T2DM * Steriods preop and continuing post op x3 doses * Lantus 30 units x1 now, reassess basal insulin in AM * Novolog ordered with a weight based stress of 3 PLAN FOR INPATIENT GLYCEMIC CONTROL: * Hold outpatient oral diabetes medications * Basal insulin * Lantus 15 units x 1 this AM, 06/03 per scale this PM * Bolus insulin * NovoLog per scale ACHS or Q6hrs while NPO * Goal Range: Low 110 mg/dL - High 140 mg/dL * Correction Factor: 15 mg/dL/unit * Nutritional / Prandial insulin per carb ratio of 1 unit per 5 grams CHO consumed
--- NOTE | 2022-10-04 16:46 | Hospitalist Progress Note ---
Date of Service October 04, 2022 Assessment & Plan (1) S/P spinal surgery: (2) Type 2 diabetes mellitus: (3) Hypertension: (4) Dyslipidemia: Plan This is a 52yo M with a PMH of type 2 diabetes, hypertension, hyperlipidemia, chewing tobacco and other medical problems listed below who is POD#0 s/p umbar compression bilateral medial facetectomies and foraminotomies L4-L5 L5-S1 and posterior spinal fusion L5-S1. S/p lumbar decompression surgery for lumbar spine stenosis, disc herniation Postop day #1 Stable overall Pain well controlled Hemoglobin from 14.5, now 12.9 Monitor closely Transfuse for hemoglobin below 7 Continue bowel regimen DVT prophylaxis per Ortho service DM II A1c 8.3 Hold home agents Decadron ordered by primary service; expect elevated BSG. Glycemic pharmacy consulted BSG 148, 192 Currently on insulin sliding scale HTN Normotensive. Continue lisinopril HLD Continue statin Tobacco use Chews tobacco daily; cessation education. Nicotine patch ordered Thank you for this consultation. We will follow the patient with you during their hospital stay. You can reach a member of the [facility] Hospitalist Team 12/05 via pager @ [phone]. Admission and Anticipated Discharge Date Admission Date: October 03, 2022 Subjective Follow-up for lumbar spine stenosis with disc herniation, status post lumbar decompression, etc. Seen resting in bed, comfortable, watching TV, in good spirits States he feels so much better after surgery Minimal pain over the surgical site, but no leg pain, ambulating much better compared to before No chest pain, shortness of breath, dizziness, nausea No bowel movement yet but positive for flatus No other symptoms Review of Systems Review of Systems: all noted and negative except for above Physical Exam Physical Exam: General- oriented x 3, not in distress, speaks in sentences with no effort or accessory muscle use Eyes- anicteric Neck- no JVD Lungs- clear breath sounds bilaterally, no rales/wheezes Heart- normal rate, regular rhythm; no murmurs Abdomen- normal bowel sounds, nondistended, soft, nontender Lower back-surgical dressing in place, no bleeding or discharge, RAVI drain in place with serosanguineous output Extremities- no pretibial edema, no calf tenderness Neuro- alert, oriented x 3; no gross focal neurologic deficits Skin- warm & dry Results & Data Results & Data ([facility]) Vital Signs (Past 12 Hours) Vital Signs Temp Pulse Resp BP Pulse Ox O2 Del Method 10/04/22 07:30 Room Air 10/04/22 07:55 36.5 C 71 18 113/73 96 Room Air all noted and reviewed including below
[2022-10-04] MEDS: NICOTINE 21 MG/24 HR TDSY TD SCH (18:38)
[2022-10-04] MEDS: DOCUSATE SODIUM/SENNA 50/8.6MG TAB PO SCH (19:55)
[2022-10-05] MEDS: POLYETHYLENE (MIRALAX) 17 GM PACK PO SCH ×2 (06:07→11:08)
[2022-10-05] MEDS: oxyCODONE HCL IR 5 MG TAB (IMMEDIATE RELEASE) PO PRN ×2 (06:07→13:17)
[2022-10-05] MEDS: ATORVASTATIN 40 MG TAB PO SCH (07:58)
[2022-10-05] MEDS: ASPIRIN 81 MG ECTAB PO SCH (07:58)
[2022-10-05] MEDS: lisinopril 10 MG TAB PO SCH (07:58)
[2022-10-05] MEDS: INSULIN ASPART PER UNIT SC SCH ×2 (09:14→12:40)
--- NOTE | 2022-10-05 10:27 | Discharge Summary ---
Date of Service October 05, 2022 Admission HPI Per Admitting Provider This is a 52-year-old male presents with chronic persistent back and leg pain. After failing such course of nonoperative care is here for surgical invention. Principal Diagnosis Lumbar spinal stenosis with with urinary nucleus pulposus and radiculopathy Discharge Data Allergies Allergy/AdvReac Type Severity Reaction Status Date / Time No Known Allergies Allergy Verified 10/03/22 08:19 Consultations 10/03/22 13:52 Consult Hospitalist Routine Procedures Performed Operation Date: 10/03/22 09:35 Actual Procedures p L4-S1 Decompression and L5-S1 Fusion, Interbody fusion at L5-S1(Not Applicable) - Jacky Kinney DO Ordered Studies 10/03/22 09:35 FL lumbar spine 2-3V Routine Hospital Course (1) S/P spinal surgery: Patient went lumbar surgery [facility] posting orthopedic for postoperative. Postop day 1 is up and ambulating progressed to postop day #2 1 RAVI drain decreased probably. Excellent strength testing. Pain well controlled. Separately discharged home. Discharge orders instructions from the chart for further review. Total Time Total Time Spent Total Time Spent (In Minutes): 20 minutes Discharge Plan Discharge Items Patient Disposition: Home - Self-Care Reason For Visit: Spinal Stenosis, Lumbar Region without Neurogenic Discharge Diagnosis: Lumbar disc condition with radiculopathy Activity: As commented below Non-emergency contact: Primary Care Provider Call non-emergency contact if: you have any medication questions Follow-up/Referrals: Melinda Lang MD [Primary Care Provider] - Diet: Regular Addtl Attending Provider Instructions: ACTIVITY RECOMMENDATIONS: SELF CARE INSTRUCTIONS AFTER THORACIC/LUMBAR FUSIONS 1. You may walk to your tolerance. It is good exercise for your legs and back. Expect some back and intermittent leg aches and pains. 2. You may perform "counter-top" level activities (make a sandwich, gavin with a project, etc.). 3. No bending or lifting of more than 10 pounds or back twisting of any nature (roll like a log when turning in bed). 4. You may ride in a car for 20-30 minutes at a time. No driving until after your first visit with your doctor. 5. Frequent changes of position and restricting sitting to 30 minutes at a time will help limit the amount of back spasms and stiffness you may experience. 6. You may discontinue the use of ambulatory aids (cane, crutches, etc.) once your strength and confidence allow. 7. You may marketing strategy analyst the shower and let water strike your incision when you arrive home at least once daily. Do not take a tub bath, sit in a hot tub or go into a swimming pool until after your first recheck in the office. SPECIAL CARE INSTRUCTIONS: VERY IMPORTANT TO READ AND REVIEW A. Your surgical incision has been closed with a cosmetic suture under the skin that will dissolve in about 6 weeks. In 14 days, you can use a pair of clean scissors and cut the suture that is left outside of the skin at the ends of your incision. 1. The small skin tapes can be removed 7 days after surgery if they have not fallen off by that point. 2. You may keep the wound open to air as much as possible to promote healing after post-op day number 5 unless told otherwise by your doctor. 3. If you think the wound looks like it is becoming infected (redness or worsening drainage) and/or you are experiencing fever, chill or worsening back pain and muscle spasms, contact the office so that we may cyril luate you as soon as possible. B. Complications are uncommon, but please contact us if you have any signs or symptoms of: 1. wound infection (fever higher than 102.5 degrees F, redness, separation of wound, drainage, or increasing pain from the incision) 2. blood clots in legs (pain, swelling, redness and warmth in legs) 3. urinary tract infection (fever higher than 102.5 degrees F, burning upon urination or increased frequency of urination) 4. nerve problems (inability to walk on your toes or heels, numbness, loss of bowel or bladder control) 5. any other symptoms that concern you C. Please call the office at if you have any concerns or questions about your operation or recovery. D. No smoking! Smoking drastically decreases the chance of a solid fusion. E. Do not take any anti-inflammatory medications (Indocin, Advil, Motrin, As pirin, Naprosyn, etc.) as these may inhibit the chance of a solid fusion. Tylenol is okay to take for pain. MANAGING PAIN AFTER SPINAL SURGERY 1. Narcotic medication is intended for short-term use and will be provided for surgical pain. Surgical pain usually lasts for a period of 4-6 weeks. Narcotic medication includes Percocet, Vicodin, Darvocet, Tylenol #3 or Lortab. 2. Longer-term pain is more appropriately treated with non-narcotic medication such as Tylenol ES. 3. Muscle spasm is not appropriately treated with narcotics. Muscle relaxers such as Soma, Flexeril or Skelaxin can be used along with Tylenol ES. 4. Remember that we all live with some "aches and pains". This is not unusual or uncommon after an injury or as we get older. a. Back pain is expected and may include muscle spasms for 4 to 6 weeks after surgery. The pain should gradually improve. If the pain worsens for no apparent reason, please contact the office. b. Intermittent leg pain may also be experienced and should not be concerned about unless it worsens for no apparent reason. If so, please contact the office. 5. We will provide appropriate medication within the normal guidelines of their prescribed use. We will also be very cautious and aware of potential abuse and extended duration of patients' medication needs. a. Pain medications are for your comfort and to assist with sleep and rest so that the tissue can heal. They are not provided in order to return to normal activity and should not be used through the day. To do so or worsening pain at night can result from ongoing tissue damage and development of tolerance to the prescribed medicine. 6. Please allow 2-3 days to process refills. Prescriptions will not be mailed but must be picked up at the office. FOLLOW UP VISIT: Keep your scheduled follow-up appointment. Any questions, please call the office at . Pending Studies at Discharge: No Stand-Alone Forms: [facility], Smoking Cessation Medications and DC Order Prescriptions: New tramadol 50 mg tablet 50 mg PO Q6H PRN (Reason: pain, moderate) Qty: 30 0RF oxycodone 5 mg tablet 5 mg PO Q6H PRN (Reason: pain, severe) Qty: 30 0RF Continued oxycodone-acetaminophen [Percocet] 5-325 mg tablet 1 - 2 tab PO Q4H PRN (Reason: pain) Qty: 30 0RF Rx Instructions: INITIAL THERAPY atorvastatin 40 mg tablet 40 mg PO QAM lisinopril 10 mg tablet 10 mg PO QAM aspirin 81 mg Tablet 81 mg PO QAM metformin 500 mg tablet extended release 24 hr 500 mg PO QAM Jardiance 25 mg tablet 25 mg PO QAM Discharge Orders: Discharge Order (Routine); Ordered 10/05/22 Ordered By: Jacky Escalona/Other Patient Handouts: Managing Type 2 Diabetes Admission Data Admit Date/Time: 10/03/22 12:31 Attending Provider: Jacky Kinney Admit Provider: Jacky Kinney Primary Care Provider: Melinda Lang Other Providers: Faviola Jules ; Brian Melvin
[2022-10-05] MEDS: traMADol HCL 50 MG TABLET PO PRN (11:12)
== END 2022-10-05 13:48 | disposition home or self-care (01) | DRG 455 ==
LOC: ASU 07:42 → 3E 12:31